=== PATIENT | male | born 2005 | race African-American/Black ===

== ENCOUNTER 2025-04-27 13:03 | Emergency (ER) | payer OTHER ==
[~2025-04-27] VITALS: Ht 172.7 cm; Wt 76.0 kg
[2025-04-27 13:11] VITALS: BP 126/69; TEMP 97.8; O2SAT 99
== END 2025-04-27 13:29 | disposition home or self-care (01) ==
LOC: M ED 13:03
DX: L60.0 Ingrowing nail (principal)